=== PATIENT | female | born 1975 | race Caucasian/White ===

== ENCOUNTER 2022-02-12 11:40 | Emergency (ER) | payer BC ==
[~2022-02-12] VITALS: Ht 167.6 cm; Wt 100.2 kg
[2022-02-12 11:51] VITALS: BP_SYST 161
[2022-02-12 12:27] LABS: BILIRUBIN,URINE NEGATIVE (NEGATIVE); BLOOD, URINE 1+ (NEGATIVE); CLARITY/URINE CLEAR (CLEAR); COLOR,URINE YELLOW (YELLOW); GLUCOSE,URINE NEGATIVE (NEGATIVE); KETONES,URINE TRACE (NEGATIVE); LEUKOCYTE ESTERASE ,URINE NEGATIVE (NEGATIVE); NITRITE, URINE NEGATIVE (NEGATIVE); PROTEIN URINE TRACE (NEGATIVE)
[2022-02-12 12:32] LABS: BASOPHILS % (AUTO) 0.5 % (0.0-2.0); EOSINOPHILS # (AUTO) 0.1 K/uL (0.0-0.4); EOSINOPHILS % (AUTO) 1.1 % (0.0-4.0); HEMOGLOBIN 12.3 g/dL (12.0-16.0); LYMPHOCYTES # (AUTO) 2.1 K/uL (1.0-5.5); LYMPHOCYTES % (AUTO) 22.1 % (20.5-51.5); MEAN CORPUSCULAR HEMOGLOBIN 26 pg (27-31); MEAN CORPUSCULAR HGB CONC 33 % (32-36); MEAN CORPUSCULAR VOLUME 79 fL (79.0-98.0); MONOCYTES # (AUTO) 0.8 K/uL (0.0-1.0); MONOCYTES % (AUTO) 8.9 % (1.7-9.3); NEUTROPHILS # (AUTO) 6.4 K/uL (1.8-7.7); NEUTROPHILS % (AUTO) 67.4 % (40.0-70.0); PLATELET COUNT (AUTO) 342 K/uL (130-430); RED BLOOD CELL COUNT(AUTO) 4.67 MIL/uL (4.2-6.2); WHITE BLOOD COUNT (AUTO) 9.5 K/uL (4.8-10.8)
[2022-02-12 12:45] LABS: CALCIUM 8.5 mg/dL (8.4-11.0); CREATININE 0.58 mg/dL (0.55-1.30); POTASSIUM 3.4 mmol/L (3.5-5.1)
[2022-02-12 12:46] LABS: BACTERIA,URINE FEW /HPF (None Seen); MUCUS,URINE 1+ /LPF (None Seen); WBC,URINE 0-3 /HPF (0-3)
[2022-02-12 12:50] LABS: ALBUMIN 3.4 g/dL (3.4-4.8); TOTAL BILIRUBIN 0.3 mg/dL (0.0-1.0)
[2022-02-12] MEDS ORDERED: IBUP-1969 PO (14:36)
[2022-02-12] MEDS ORDERED: AMOX-423 PO (14:36)
[2022-02-12 15:01] VITALS: BP_SYST 148
== END 2022-02-12 15:02 | disposition home or self-care (01) ==
LOC: SED 11:40
DX: K57.92 Diverticulitis of intestine, part unspecified, without perforation or abscess without bleeding (principal); Z79.899 Other long term (current) drug therapy
CPT/HCPCS: 36415; 76376; 80053; 81000; 83690; 85025; 99284

== ENCOUNTER 2022-02-15 07:18 | Emergency (ER) | payer BC ==
[~2022-02-15] VITALS: Ht 167.6 cm; Wt 81.6 kg
[~2022-02-15 07:18] MED LIST: AMOX-423 PO; IBUP-1969 PO
[2022-02-15 07:30] VITALS: BP_SYST 158
--- NOTE | 2022-02-15 07:30 | NUR ---
PT PLACED IN BED 3. REPORT TO IGLESIA BEGUM.
--- NOTE | 2022-02-15 07:31 | NUR ---
ERMD AT BEDSIDE
[2022-02-15 08:00] LABS: BASOPHILS % (AUTO) 0.5 % (0.0-2.0); EOSINOPHILS # (AUTO) 0.2 K/uL (0.0-0.4); EOSINOPHILS % (AUTO) 2.3 % (0.0-4.0); HEMATOCRIT 34.8 % (36-48); HEMOGLOBIN 11.8 g/dL (12.0-16.0); LYMPHOCYTES # (AUTO) 1.7 K/uL (1.0-5.5); LYMPHOCYTES % (AUTO) 23.7 % (20.5-51.5); MEAN CORPUSCULAR HEMOGLOBIN 27 pg (27-31); MEAN CORPUSCULAR HGB CONC 34 % (32-36); MEAN CORPUSCULAR VOLUME 78 fL (79.0-98.0); MONOCYTES # (AUTO) 0.7 K/uL (0.0-1.0); MONOCYTES % (AUTO) 9.6 % (1.7-9.3); NEUTROPHILS # (AUTO) 4.5 K/uL (1.8-7.7); NEUTROPHILS % (AUTO) 63.9 % (40.0-70.0); PLATELET COUNT (AUTO) 301 K/uL (130-430); RED BLOOD CELL COUNT(AUTO) 4.44 MIL/uL (4.2-6.2); RED CELL DISTRIBUTION WIDTH 15.8 % (9.0-15.0)
[2022-02-15 08:18] LABS: CALCIUM 7.9 mg/dL (8.4-11.0); CREATININE 0.61 mg/dL (0.55-1.30); POTASSIUM 3.4 mmol/L (3.5-5.1)
[2022-02-15 08:24] LABS: TOTAL BILIRUBIN 0.4 mg/dL (0.0-1.0)
== END 2022-02-15 09:45 | disposition home or self-care (01) ==
LOC: SED 07:18
DX: K57.92 Diverticulitis of intestine, part unspecified, without perforation or abscess without bleeding (principal)
CPT/HCPCS: 36415; 80053; 83605; 85025; 86140; 99283